=== PATIENT | female | born 1980 | race Caucasian/White ===

== ENCOUNTER 2018-10-25 03:46 | Emergency (ER) | payer OTHER ==
[2018-10-25 03:54] VITALS: BP 142/84; PULSE 93; RESP 20; TEMP 97.7
[2018-10-25] MEDS ORDERED: DIPH,PERTUS(ACELL)TETVAC-LF 0.5 ML VIAL IM ONE (04:15)
--- NOTE | 2018-10-25 04:15 | ED ---
Fall HPI - General Chief Complaint: Fall Stated Complaint: fall,arm injury Time Seen by Provider: 10/25/18 04:08 Source: patient Mode of arrival: ambulatory - History of Present Illness Initial Comments: Dash is a pleasant 38-year-old female presents the emergency department for evaluation of left elbow pain and tingling in her left ring and pinky finger after slip and fall on ice. Patient reports that earlier in the evening she was walking she slipped and fell on the ice landing on her left elbow she did notice an abrasion to the elbow she wash the abrasion and placed Band-Aids on it but throughout the evening has had persistent pain in the elbow and tingling of her pinky and ring finger which made her concerned and prompted her to come the ER for evaluation. Patient reports tenderness to palpation and swelling to the left forearm distal to the elbow. She has full range of motion of the elbow without eliciting any pain. She only has pain with palpation of the tingling of her fingers is nearly constant. - Related Data Home Medications Medication Instructions Recorded Confirmed Buprenorphine HCl/Naloxone HCl 1 each SL 10/25/18 10/25/18 [Suboxone 2 mg-0.5 mg Sl Film] Dextroamphetamine/Amphetamine 20 mg PO DAILY 10/25/18 10/25/18 [Adderall] Ranitidine HCl 150 mg PO HS 10/25/18 10/25/18 Allergies Allergy/AdvReac Type Severity Reaction Status Date / Time No Known Allergies Allergy Verified 10/25/18 03:54 Review of Systems ROS Statement: Those systems with pertinent positive or pertinent negative responses have been documented in the HPI. ROS Other: All systems not noted in ROS Statement are negative. Past Medical History Past Medical History: No Reported History History of Any Multi-Drug Resistant Organisms: None Reported Past Surgical History: No Surgical Hx Reported Past Psychological History: No Psychological Hx Reported Smoking Status: Current every day smoker Past Alcohol Use History: Daily Past Drug Use History: Marijuana General Exam - General Exam Comments Initial Comments: Physical Exam GENERAL: Patient is well-developed and well-nourished. Patient is nontoxic and well-hydrated and is in no distress. HENT: Normocephalic, Atraumatic. EYES: EOMI PULMONARY: Unlabored respirations. CARDIOVASCULAR: Warm well perfused extremities ABDOMEN: SKIN: Abrasion to left forearm distal to elbow : Deferred NEUROLOGIC: Patient is alert and oriented x3. Moving all extremities spontaneously Reports paresthesia in left pinkie and ring fingers MUSCULOSKELETAL: Normal extremities with adequate strength and full range of motion. No lower extremity swelling or edema. No calf tenderness. PSYCHIATRIC: Normal psychiatric evaluation. Limitations: no limitations Limitations: no limitations Course Vital Signs 10/25/18 03:50 Temperature 97.7 F Pulse Rate 93 Respiratory 20 Rate Blood Pressure 142/84 O2 Sat by Pulse 97 Oximetry Medical Decision Making - Medical Decision Making Patient seen and evaluated Fall with abrasion and left forearm pain with paresthesias of left ring and pinkie finger concerning for ulnar nerve injury Xray ordered Patient uncertain of when her tetanus was last updated, believes that it was greater than 5 years ago, T Dopp was ordered and administered X-ray with no acute findings Results were discussed with patient who expresses relief. Supportive care with anti-inflammatories ice and rest were discussed, patient was advised to follow- up with her primary care physician or orthopedic physician for reevaluation if she has persistent neuropathy. Disposition Clinical Impression: Fall, Abrasion forearm, Ulnar nerve neuropathy Disposition: HOME SELF-CARE Condition: Stable Instructions (If sedation given, give patient instructions): Abrasion (ED) Is patient prescribed a controlled substance at d/c from ED?: No Referrals: Bigg Thompson DO [Primary Care Provider] - 1-2 days Time of Disposition: 04:48
--- NOTE | 2018-10-25 04:26 | XR ---
EXAMINATION TYPE: XR elbow complete LT DATE OF EXAM: 10/25/2018 COMPARISON: NONE HISTORY: Pain TECHNIQUE: 3 views FINDINGS: I see no fracture nor dislocation. Joint spaces are normal. There is no evidence of elbow j oint effusion. IMPRESSION: Normal left elbow exam.
== END 2018-10-25 04:58 | disposition home or self-care (01) ==
LOC: EC 03:46
DX: S50.812A Abrasion of left forearm, initial encounter (principal); Z23 Encounter for immunization; G56.22 Lesion of ulnar nerve, left upper limb; F17.200 Nicotine dependence, unspecified, uncomplicated; Z79.899 Other long term (current) drug therapy; W00.0XXA Fall on same level due to ice and snow, initial encounter; Y92.009 Unspecified place in unspecified non-institutional (private) residence as the place of occurrence of the external cause
CPT/HCPCS: 90471; 90715; 99283